=== PATIENT | female | born 1990 | race Caucasian/White ===

== ENCOUNTER 2021-10-07 03:59 | Inpatient (IN) ==
[2021-10-07] MEDS ORDERED: Lidocaine 1% 20 ML MDV INFILT PRN (04:17)
[2021-10-07] MEDS ORDERED: Metoclopramide 10 MG/2 ML VIAL IVP PRN (04:17)
[2021-10-07] MEDS ORDERED: Naloxone 0.4 MG/ML INJ IVP PRN (04:17)
[2021-10-07] MEDS ORDERED: Famotidine 20 MG/2 ML VIAL IVP PRN (04:17)
[2021-10-07] MEDS ORDERED: *HR* Nalbuphine 10 MG/ML AMPUL IV PRN (04:17)
[2021-10-07] MEDS ORDERED: Ondansetron 4 MG/2 ML VIAL IVP PRN (04:17)
[2021-10-07] MEDS ORDERED: 0.9 % Sodium Chloride 1,000 ML IVC SCH (04:30)
[2021-10-07] MEDS ORDERED: Oxytocin 20 units/ LR 1000 mL 20 UNIT/1,000 ML BAG IVC SCH ×2 (05:15→17:27)
[2021-10-07 05:20] LABS: Amphetamine Screen,Urine Negative ng/mL (Cutoff=1000); Barbiturate Screen,Urine Negative ng/mL (Cutoff=200); Benzodiazepines Screen,Urine Negative ng/mL (Cutoff=200); Cannabinoid Screen,Urine Negative ng/mL (Cutoff = 50); Cocaine Screen,Urine Negative ng/mL (Cutoff= 300); Opiate Screen,Urine Negative ng/mL (Cutoff=300); Phencyclidine Screen,Urine Negative ng/mL (Cutoff=25)
[2021-10-07 05:26] LABS: Basophils % 0.2 %; Eosinophils % 0.6 %; Immature Granulocytes % 0.3 % (0-4)
[2021-10-07 05:28] LABS: Eosinophils # 0.1 K/mcL (0.0-0.6); Hematocrit 39.9 % (35.3-44.9); Immature Platelets 16.2 % (1.1-6.1); Lymphocytes # 1.9 K/mcL (0.6-4.6); Lymphocytes % 17.4 %; Mean Corpuscular HGB Conc 32.6 g/dL (31.6-35.5); Mean Corpuscular Volume 91.9 fL (83.0-100.0); Mean Platelet Volume 13.3 fL (9.4-12.4); Monocytes # 0.8 K/mcL (0.0-1.3); Monocytes % 6.9 %; Neutrophils # 8.3 K/mcL (1.6-8.9); Platelet Count 196 K/mcL (140-400); Red Blood Count 4.34 M/mcL (3.82-4.97); Red Cell Distribution Width 14.4 % (11.5-14.5); Segmented Neutrophils % 74.6 %; White Blood Count 11.1 K/mcL (4.3-11.1)
[2021-10-07 05:46] LABS: Influenza A PCR Negative (Negative); Influenza B PCR Negative (Negative); Resp. Syncytial Virus PCR Negative (Negative)
[2021-10-07 05:47] LABS: SARS-CoV-2 by PCR (In House) Negative (Negative)
[2021-10-07] MEDS ORDERED: Ropivacaine/PF 0.2% 20 ML VIAL EP ONE (08:37)
[2021-10-07] MEDS ORDERED: EPHEDrine 50 MG/ML VIAL IVP PRN (08:37)
[2021-10-07] MEDS ORDERED: *HR* FentaNYL (PF) 100 MCG/2 ML VIAL EP ONE (08:37)
[2021-10-07] MEDS ORDERED: Epidural Premix (fent/bupiv) 110 ML EP SCH (08:45)
[2021-10-07] MEDS ORDERED: Ondansetron ODT 4 MG TAB.RAPDIS SL PRN (17:27)
[2021-10-07] MEDS ORDERED: Lanolin 7 G OINT...G. TP PRN (17:27)
[2021-10-07] MEDS ORDERED: Benzocaine/Menthol 56 GM AEROSOL SPRAY TP PRN (17:27)
[2021-10-07] MEDS ORDERED: Measles/Mumps/Rubella Vacc 0.5 ML VIAL SQ PRN (17:27)
[2021-10-07] MEDS ORDERED: Oxytocin 20 units/ LR 1000 mL 20 UNIT/1,000 ML BAG IVC ONE (17:29)
[2021-10-07 18:58] VITALS: O2SAT 97
[2021-10-07] MEDS: Ibuprofen 600 MG TABLET PO SCH (20:46)
[2021-10-07] MEDS: Acetaminophen 325 MG TABLET PO SCH (20:47)
[2021-10-08] MEDS: Ibuprofen 600 MG TABLET PO SCH ×2 (02:11→07:56)
[2021-10-08] MEDS: Acetaminophen 325 MG TABLET PO SCH ×2 (02:11→07:55)
[2021-10-08 03:57] LABS: Basophils % 0.1 %; Eosinophils # 0.1 K/mcL (0.0-0.6); Eosinophils % 0.3 %; Hematocrit 36.6 % (35.3-44.9); Hemoglobin 12.1 g/dL (11.5-15.4); Immature Granulocytes % 0.4 % (0-4); Lymphocytes # 2.1 K/mcL (0.6-4.6); Lymphocytes % 12.5 %; Mean Corpuscular HGB Conc 33.1 g/dL (31.6-35.5); Mean Corpuscular Hemoglobin 31.1 pg (28.0-33.3); Mean Corpuscular Volume 94.1 fL (83.0-100.0); Mean Platelet Volume 12.9 fL (9.4-12.4); Monocytes # 1.2 K/mcL (0.0-1.3); Monocytes % 7.4 %; Platelet Count 170 K/mcL (140-400); Red Blood Count 3.89 M/mcL (3.82-4.97); Red Cell Distribution Width 14.5 % (11.5-14.5); Segmented Neutrophils % 79.3 %
[2021-10-08 04:10] LABS: Neutrophils # 13.2 K/mcL (1.6-8.9); White Blood Count 16.7 K/mcL (4.3-11.1)
[2021-10-08 07:25] VITALS: BP 104/62; PULSE 86; TEMP 98.2
[2021-10-08] MEDS ORDERED: Prenatal Vit/FA 1 EACH TABLET PO SCH (09:00)
== END 2021-10-08 18:39 | disposition home or self-care (01) | DRG 805 ==
LOC: 1NENULAB 03:59 → 1NENUOBS 18:49
PROVIDERS: ADMIT Obstetrics & Gynecology; ATTEND Obstetrics & Gynecology